=== PATIENT | female | born 1955 | race Hispanic/Latino ===

== ENCOUNTER 2018-05-03 09:23 | Day surgery (SDC) | payer OTHER ==
[2018-05-03] VITALS (7 sets, daily range): BP systolic 113–138; BP diastolic 68–78
[~2018-05-03] VITALS: Ht 154.9 cm; Wt 125.6 kg
[~2018-05-03 09:23] MED LIST: ALPR1TAB5 PO; ATOR20TA65 PO; DILT120C47 PO; DULO30CA51 PO; ESOM20CA39 PO; FERS325 PO; FURO20TA4 PO; GABA-531 PO; GLIM2TAB3 PO; HYDR12.54 PO; IRON15TA3 PO; LEVO25TA54 PO; LORA10CA9 PO; MAGN500C15 PO; METF-527 PO; METO-391 PO; POTA20TA12 PO; SITA50TA PO; SODIUM CHLORIDE 0.9% 1000ML 1,000 ML IV ONE; VITA1TAB22 PO
[2018-05-03] MEDS ORDERED: PROPOFOL 10 MG/ML 20ML VIAL IV ONE ×2 (12:00→12:24)
== END 2018-05-03 13:23 | disposition home or self-care (01) ==
LOC: ENDO 09:23 → DAH 09:23 → ENDO 13:23
PROVIDERS: ATTEND Internal Medicine
DX: K63.5 Polyp of colon (principal); K21.0 Gastro-esophageal reflux disease with esophagitis; I10 Essential (primary) hypertension; J44.9 Chronic obstructive pulmonary disease, unspecified; F41.9 Anxiety disorder, unspecified; F32.9 Major depressive disorder, single episode, unspecified; E03.9 Hypothyroidism, unspecified; E11.9 Type 2 diabetes mellitus without complications; D64.9 Anemia, unspecified; Z68.43 Body mass index [BMI] 50.0-59.9, adult; Z79.899 Other long term (current) drug therapy; Z79.84 Long term (current) use of oral hypoglycemic drugs; E78.2 Mixed hyperlipidemia
CPT/HCPCS: 43239; 45380; 45385; 82948 ×2; 88305; 93005; A4606; C1769; J2704 ×2; J7030